=== PATIENT | female | born 1990 | race African-American/Black ===

== ENCOUNTER 2016-05-22 19:01 | Inpatient (IN) ==
[2016-05-22 19:29] LABS: Apearance,Urine Slightly Hazy (Clear); Bacteria,Urine Occasional /HPF (Few); Bilirubin,Urine Negative (Negative); Blood, Urine Negative (Negative); Glucose,Urine (UA) Negative (Negative); Ketones,Urine 80 mg/dL (Negative); Mucus,Urine Occasional /LPF (Occasional); Nitrite,Urine Negative (Negative); Protein,Urine Negative; RBC,Urine <1 /HPF (0-4); Squamous Epithelial Cell,Urine Occasional /HPF (0-10); Urine Color Yellow (Yellow); Urine Specific Gravity 1.014 (1.001-1.035); Urine Urobilinogen < 2.0 EU/DL (0.2-1.0); WBC,Urine 3 /HPF (0-6)
[2016-05-22] MEDS ORDERED: LACTATED RINGERS 1,000 ML IV ONE ×2 (20:18→22:05)
[2016-05-22] MEDS ORDERED: ACETAMINOPHEN 325 MG TABLET PO ONE (20:18)
[2016-05-22] MEDS ORDERED: ONDANSETRON 4 MG/2 ML VIAL ONE (20:36)
[2016-05-22] MEDS ORDERED: ONDANSETRON 4 MG/2 ML VIAL IV ONE (20:47)
[2016-05-22] MEDS ORDERED: PROMETHAZINE 25 MG/1 ML VIAL ONE (21:49)
[2016-05-22] MEDS ORDERED: MEPERIDINE 50 MG/1 ML VIAL ONE (21:49)
[2016-05-22] MEDS ORDERED: MEPERIDINE 50 MG/1 ML VIAL IM ONE (22:05)
[2016-05-22] MEDS ORDERED: PROMETHAZINE 25 MG/1 ML VIAL IM ONE (22:05)
[2016-05-22] MEDS ORDERED: PROMETHAZINE 25 MG/1 ML VIAL IM PRN (22:58)
[2016-05-22] MEDS ORDERED: INFLUENZA VIRUS VACCINE 0.5 ML SYRINGE IM ONE (23:25)
[2016-05-22] MEDS ORDERED: LEVOFLOXACIN INJ 500 MG in PREMIX 1 EACH IV SCH (23:30)
[2016-05-22] MEDS: LACTATED RINGERS 1,000 ML IV SCH (23:39)
[2016-05-22] MEDS ORDERED: MEPERIDINE 50 MG/1 ML VIAL IM PRN (23:41)
[2016-05-22 23:45] LABS: Basophils % 0.2 % (0.0-0.8); Eosinophils # 0.1 10*3/uL (0.0-0.87); Eosinophils % 1.5 % (0.00-10.9); Hematocrit 29.1 VOL% (35.7-47.0); Hemoglobin 9.3 GM/DL (12.0-16.0); Immature Granulocytes % 0.3 %; Immature Granulocytes Absolute 0.02 #; Lymphocytes % 16.6 % (21.3-54.2); Mean Corpuscular Hemoglobin 23 PG (27-34); Mean Corpuscular Volume 71.5 FL (87-102); Monocytes # 0.5 10*3/uL (0.11-0.8); Monocytes % 8.8 % (1.7-12.7); Neutrophils # 4.3 10*3/uL (1.4-7.4); Neutrophils % 72.6 % (38.7-73.9); Platelet Count 317 10*3/uL (130-400); Red Blood Count 4.07 10*6/uL (3.8-5.5); Red Cell Distribution Width 15.2 % (9.3-17.3); White Blood Count 5.9 10*3/uL (4.5-13.71)
[2016-05-23 00:15] LABS: Alanine Aminotransferase 9 U/L (13-56); Albumin 2.5 G/DL (3.4-5.0); Alkaline Phosphatase 77 U/L (45-117); Aspartate Amino Transferase 9 U/L (0-37); Bilirubin,Total < 0.39 MG/DL (0.2-1.0); Blood Urea Nitrogen 3 MG/DL (7-18); Calcium 8.5 MG/DL (8.5-10.1); Glucose 76 MG/DL (74-106); Osmolality,Calculated 276.3 MOS/KG (273-304); Potassium 3.6 MMOL/L (3.5-5.1); Sodium 141 MMOL/L (136-145)
[2016-05-23] MEDS: LEVOFLOXACIN INJ 500 MG in PREMIX 1 EACH IV SCH (01:00)
[2016-05-23] MEDS ORDERED: PROMETHAZINE 25 MG/1 ML VIAL IM PRN (02:01)
[2016-05-23] MEDS: MEPERIDINE 50 MG/1 ML VIAL IV PRN ×5 (02:06→21:05)
[2016-05-23] MEDS: LACTATED RINGERS 1,000 ML IV SCH ×3 (05:00→20:33)
--- NOTE | 2016-05-23 06:38 | Ultrasound Report ---
History is right flank pain Right kidney is 12.0 CM in length Left kidney is 9.9 CM in length There is moderate dilatation of the right renal collecting system and proximal ureter No hydronephrosis seen on the left Cortical echogenicity is normal bilaterally there is arterial flow to both kidneys Impression: Moderate hydronephrosis on the right PROCEDURE INTERPRETED AT [facility] DEPARTMENT OF RADIOLOGY Final Report Signed by: Dr. Kiara Cannon
[2016-05-23] MEDS ORDERED: ONDANSETRON 4 MG/2 ML VIAL IV PRN (16:40)
--- NOTE | 2016-05-23 18:06 | OB/GYN History & Physical ---
History of Present Illness Chief complaint: In for c/o flank pain and elevated temp History of present illness: Ms. Ku is a 26 year old female leaving 10/06/2016 estimated gestational size of 20 weeks and 3 days. The patient is a 5 para 2 living 2 Ab2. She presented to the labor department with complaints of right flank pain, stomach pain, chills and fever, and generalized malaise. The patient was admitted for evaluation of the above. The patient cervix is closed. She has been receiving her care to the [facility]. labs: Patient is B+, rubella immune, serologies nonreactive, hepatitis B negative, HIV negative. Home Medications Medication Instructions Recorded Confirmed Type Multivitamin () [ 1 tablet PO DAILY 05/22/16 05/22/16 History Vitamin] Propranolol Tab [Inderal Tab] 10 mg PO BID 05/22/16 05/22/16 History Allergies Allergy/AdvReac Type Severity Reaction Status Date / Time Penicillins AdvReac Mild ITCHING Verified 05/22/16 19:17 12 point system: reviewed and no additional remarkable complaints except as stated Medical,Surgical,& Family Hx - Medical History Psychological: History of: Anxiety Disorders Neurology: History of: Migraine, Seizures (last seizure in february) Genitourinary: History of: Recurring Urinary Tract Infections No history of: Kidney Stones Hematology: History of: Anemia Reproductive: History of: Abnormal Pap Smear (leep procedure in dec 2015), Ovarian Cysts - Surgical History Abdominal Surgeries: Surgical HX of: Cholecystectomy Reproductive Surgeries: Surgical HX of;: Dilation and Curettage (2008) - Family History Family History: Reports;: Family Cancer (mgm-stomach), Family Diabetes (mgm), Family Hypertension (mgm), Family Stroke (mother, mgm) Denies;: Family Anesthesia Reaction, Family Heart Disease, Family Hematology , Family Psychiatric Problems, Additional Family History - Social History Smoking Status: Never smoker Frequency of Alcohol Use: None Type of Drug Use: None Marital Status: Functional capacity: independent ambulation 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 - Constitutional Vitals: Vital Signs Temp Pulse Resp BP Pulse Ox 05/23/16 16:00 97.3 F L 85 20 98/60 98 05/23/16 11:50 97.9 F 91 H 20 105/62 100 05/23/16 08:00 97.8 F 84 18 120/58 05/23/16 04:00 98.8 F 95 H 16 124/59 05/22/16 23:46 98.5 F 83 18 138/78 99 05/22/16 21:20 100.3 F H 05/22/16 19:10 99.9 F H 134 H 20 109/64 General appearance: mild distress - Antepartum / Post Antpartum Exam Cervix -Dilatation: closed Abdomen obstetrics: Present: bowel sounds normal Vagina: Present: normal moisture Uterus exam: Present: enlarged - Respiratory Respiratory exam: Present: clear to auscultation bilaterally - Cardiovascular Cardiovascular exam: Present: regular rate and rhythm - GI/Abdominal GI/Abdominal exam: Present: normal bowel sounds, soft - Extremities Exam Extremities exam: Present: normal inspection - Back Exam Back exam: Present: CVA tenderness (R) - Neurological Exam Neurological exam: Present: alert, oriented X3 - Psychiatric Psychiatric exam: Present: normal affect, normal mood - Skin Skin exam: Present: normal color, warm Assessment and Plan (1) and not yet delivered in second trimester Status: Acute Assessment and plan: Admit IV fluids CBC UA Expected Management. Current Visit: Yes (2) Pelvic pain affecting in second trimester, antepartum Status: Acute Current Visit: Yes Results - Labs CBC & BMP: 05/22/16 23:20 05/22/16 23:20
[2016-05-24] MEDS: LEVOFLOXACIN INJ 500 MG in PREMIX 1 EACH IV SCH (01:29)
[2016-05-24] MEDS: MEPERIDINE 50 MG/1 ML VIAL IV PRN ×3 (01:33→10:12)
[2016-05-24] MEDS: LACTATED RINGERS 1,000 ML IV SCH (05:26)
[2016-05-24 08:46] VITALS: BP 90/53
--- NOTE | 2016-05-24 10:39 | Discharge Summary ---
Hospital Course - Hospital Course Hospital Course: Patient admitted with severe right-sided flank pain. Fetus was very active, denies any fever or chills, does describe occasional nausea and vomiting. Ultrasound of the kidney demonstrated mild to moderate hydronephrosis on the right side at approximately 20 weeks' gestation. Urinalysis demonstrated no evidence of any leukocytes, bacteria, crystals, only hazy-colored urine. Patient was administered IV fluids she did received IV antibiotics, and IV Demerol. Over the course of her hospitalization she did receive several doses of Demerol. Fetus is been very active, cardiac activity has been well documented. Have counseled this patient in terms of increasing her fluid, we' ll continue with IV antibiotics, follow my office within a week and the possibility of follow-up with a urologist for further evaluation. Discharge Plan - Discharge Data Condition at Discharge: Stable Discharge Diet: advance to your usual diet Activity: resume usual activities as tolerated Hygiene: may shower Weight Bearing at Discharge: full weight bearing Driving: no restrictions Contact your physician if you experience:: Difficulty voiding - Discharge Medications New Promethazine Inj [Phenergan Inj] 25 mg RECTAL Q6H PRN #20 supp PRN Reason: Nausea/Vomiting No Action Propranolol Tab [Inderal Tab] 10 mg PO BID Multivitamin () [ Vitamin] 1 tablet PO DAILY - Follow Up or Referral - Forms/Instructions Exam - Constitutional Vitals: Period Temp Pulse Resp BP Sys/Pop Pulse Ox Last 24 Hr 97.1 F-97.9 F 64-91 16-20 90-105/49-62 98-100 General appearance: no acute distress - Head Head exam: Present: normal inspection - Eye Eye exam: Present: EOMI Pupils: Present: GORDON - ENT ENT exam: Present: normal exam - Neck Neck exam: Present: normal inspection - Respiratory Respiratory exam: Present: clear to auscultation bilaterally - Cardiovascular Cardiovascular exam: Present: regular rate and rhythm - GI/Abdominal GI/Abdominal exam: Present: normal bowel sounds - Extremities Exam Extremities exam: Present: normal inspection - Back Exam Back exam: Present: CVA tenderness (R) (skeletal 10 she rates her discomfort at a 3) - Neurological Exam Neurological exam: Present: alert, oriented X3 - Psychiatric Psychiatric exam: Present: anxious - Skin Skin exam: Present: normal color DS: Provider Date of admission: 05/22/16 19:01 Primary care physician: . No PCP Attending physician on admission: Jenniffer Camacho MD Discharging clinician: Jenniffer Camacho MD
== END 2016-05-24 12:50 | disposition home or self-care (01) | DRG 781 ==
LOC: EDSTATUS 19:01 → N.LD 19:01 → N.LDOUT 19:01 → N.LD 19:03 → N.OB 05-23 11:50
PROVIDERS: ADMIT Obstetrics & Gynecology; ATTEND Obstetrics & Gynecology

== ENCOUNTER 2016-06-26 05:16 | Inpatient (IN) ==
[2016-06-26] MEDS: LACTATED RINGERS 1,000 ML IV SCH ×3 (06:10→23:44)
[2016-06-26] MEDS: MEPERIDINE 50 MG/1 ML VIAL IV PRN ×3 (06:12→20:50)
[2016-06-26] MEDS: PROMETHAZINE 25 MG/1 ML VIAL IM PRN ×2 (06:12→12:45)
[2016-06-26] MEDS ORDERED: GENTAMICIN INJ 100 MG in PREMIX 1 EACH IV SCH (08:00)
[2016-06-26 08:20] LABS: Basophils % 0.2 % (0.0-0.8); Eosinophils % 0.1 % (0.00-10.9); Hematocrit 29.6 VOL% (35.7-47.0); Hemoglobin 9.3 GM/DL (12.0-16.0); Immature Granulocytes % 1.1 %; Immature Granulocytes Absolute 0.13 #; Lymphocytes # 1.6 10*3/uL (1.4-4.0); Lymphocytes % 13.4 % (21.3-54.2); Mean Corpuscular HGB Conc 31.4 GM/DL (32-36); Mean Corpuscular Hemoglobin 23 PG (27-34); Mean Corpuscular Volume 73.4 FL (87-102); Mean Platelet Volume 10.6 FL (9.6-12.0); Monocytes # 0.5 10*3/uL (0.11-0.8); Monocytes % 4.3 % (1.7-12.7); Neutrophils # 9.9 10*3/uL (1.4-7.4); Neutrophils % 80.9 % (38.7-73.9); Platelet Count 353 T/CUMM (130-400); Red Blood Count 4.03 MC/CUMM (3.8-5.5); Red Cell Distribution Width 15.6 % (9.3-17.3); White Blood Count 12.2 T/CUMM (4-12)
[2016-06-26] MEDS ORDERED: GENTAMICIN INJ 120 MG in PREMIX 1 EACH IV ONE (08:30)
[2016-06-26] MEDS: BUTORPHANOL 2 MG/ML VIAL IV PRN ×2 (08:49→12:44)
--- NOTE | 2016-06-26 08:55 | Ultrasound Report ---
Exam: US renal Bilateral Date: 06/26/2016 7:57 AM Indication: Flank pain Comparison: 05/22/[address] 04/07/2012 Findings: Right kidney. 11.7 x 5.5 x 5.6 cm. No hydronephrosis or perinephric fluid collections with mild increased echogenicity. Normal vascularity present. Mild fullness of the renal pelvis present. Left kidney. 9.9 x 5 x 4.8 cm. No hydronephrosis or perinephric fluid collections with mild increased echogenicity normal vascularity present Impression: 1. No evidence of obstructive uropathy clearly demonstrated with suggestion of possible mild medical renal disease slight increased echogenicity. If additional imaging is warranted CT may be beneficial Ultrasound images were stored and captured PROCEDURE INTERPRETED AT [facility] DEPARTMENT OF RADIOLOGY Final Report Signed by: Dr. Mike Galvez
[2016-06-26] MEDS ORDERED: INFLUENZA VIRUS VACCINE 0.5 ML SYRINGE IM ONE (16:56)
[2016-06-26] MEDS: GENTAMICIN INJ 100 MG in PREMIX 1 EACH IV SCH (19:00)
[2016-06-26] MEDS: ONDANSETRON 4 MG/2 ML VIAL IV PRN (20:50)
[2016-06-27] MEDS: GENTAMICIN INJ 100 MG in PREMIX 1 EACH IV SCH ×3 (03:09→18:51)
[2016-06-27] MEDS: MEPERIDINE 50 MG/1 ML VIAL IV PRN ×4 (03:45→19:45)
[2016-06-27] MEDS: ONDANSETRON 4 MG/2 ML VIAL IV PRN ×2 (03:51→19:45)
[2016-06-27] MEDS: ACETAMINOPHEN 325 MG TABLET PO PRN ×2 (09:23→15:34)
[2016-06-27] MEDS: LACTATED RINGERS 1,000 ML IV SCH ×2 (09:32→18:51)
--- NOTE | 2016-06-27 14:54 | OB/GYN Progress Note ---
Assessment and Plan (1) Pelvic pain affecting in second trimester, antepartum Status: Acute Assessment and plan: Admit pain management Current Visit: No MOLD PARTER - PN: Subj Interval history: Stable. States she is feeling some better. Exam MOLD PARTER - Constitutional Vitals: Vital Signs Temp Pulse Resp BP Pulse Ox 06/27/16 14:20 100/67 06/27/16 12:00 18 06/27/16 07:29 98 F 72 16 89/41 96 06/27/16 05:31 18 06/27/16 03:45 99.6 F 82 18 105/57 99 06/26/16 23:05 98.5 F 75 18 90/56 99 06/26/16 20:19 84 20 06/26/16 19:30 99.3 F 84 20 100/58 99 06/26/16 16:25 98 F 75 20 105/61 99 General appearance: mild distress - Head Head exam: Present: normal inspection - Respiratory Respiratory exam: Present: clear to auscultation bilaterally - Cardiovascular Cardiovascular exam: Present: regular rate and rhythm - GI/Abdominal GI/Abdominal exam: Present: normal bowel sounds, soft - Extremities Exam Extremities exam: Present: normal inspection - Back Exam Back exam: Present: CVA tenderness (L) - Neurological Exam Neurological exam: Present: alert, oriented X3 - Psychiatric Psychiatric exam: Present: normal affect, normal mood - Skin Skin exam: Present: normal color, warm Results - Labs CBC & BMP: 06/26/16 08:07
[2016-06-27] MEDS: FERROUS SULFATE 325 MG TABLET PO SCH ×2 (15:34→19:45)
[2016-06-28] MEDS: MEPERIDINE 50 MG/1 ML VIAL IV PRN ×5 (01:10→22:23)
[2016-06-28] MEDS: LACTATED RINGERS 1,000 ML IV SCH ×3 (02:21→18:12)
[2016-06-28] MEDS: GENTAMICIN INJ 100 MG in PREMIX 1 EACH IV SCH ×2 (03:00→11:09)
[2016-06-28] MEDS: FERROUS SULFATE 325 MG TABLET PO SCH ×2 (08:46→20:06)
--- NOTE | 2016-06-28 11:36 | Progress Note ---
Family Medicine PN Sub Interval history: Day #2 Treatment for a right pyelonephritis, urine was sensitive to staph aureus with methicillin-resistant. Sensitivities to gentamicin is less than 4 but trimethoprim sulfa was less than 0.5. This patient will continue with her gentamicin a consult will be added to increase to dose of gentamicin and also we will add the Bactrim DS 2 tablets twice a day. Risks were discussed with this patient heart tones still present she is doing well. Exam (Progress Note) - Constitutional Vitals: Period Temp Pulse Resp BP Sys/Pop Pulse Ox Last 24 Hr 97.8 F-98.8 F 78-99 18-20 95-109/53-67 96-99 Results - Labs CBC & BMP: 06/26/16 08:07
[2016-06-28] MEDS ORDERED: SULFAMETHOX/TRIMETHOPRIM 800-160 MG TABLET PO SCH (12:00)
[2016-06-28] MEDS ORDERED: SULFAMETHOX/TRIMETHOPRIM 400-80 MG TABLET PO SCH (12:00)
[2016-06-28] MEDS: FOLIC ACID 1 MG TABLET PO SCH (12:40)
[2016-06-28] MEDS: ONDANSETRON 4 MG/2 ML VIAL IV PRN ×2 (15:10→20:00)
[2016-06-28] MEDS: PROMETHAZINE 25 MG/1 ML VIAL IM PRN (16:02)
[2016-06-28] MEDS: VANCOMYCIN INJ 1,250 MG in SODIUM CHLORIDE 0.9% 250 ML IV SCH (18:12)
[2016-06-28 19:02] LABS: Calcium 8.5 MG/DL (8.5-10.1); Osmolality,Calculated 277.1 MOS/KG (273-304); Potassium 4.2 MMOL/L (3.5-5.1)
[2016-06-29] MEDS: MEPERIDINE 50 MG/1 ML VIAL IV PRN ×2 (02:59→07:51)
[2016-06-29] MEDS: ONDANSETRON 4 MG/2 ML VIAL IV PRN (02:59)
[2016-06-29] MEDS: LACTATED RINGERS 1,000 ML IV SCH (03:05)
[2016-06-29] MEDS: VANCOMYCIN INJ 1,250 MG in SODIUM CHLORIDE 0.9% 250 ML IV SCH ×2 (05:55→17:33)
[2016-06-29] MEDS: FERROUS SULFATE 325 MG TABLET PO SCH ×2 (09:57→21:50)
[2016-06-29] MEDS: FOLIC ACID 1 MG TABLET PO SCH (09:58)
--- NOTE | 2016-06-29 11:10 | Progress Note ---
Family Medicine PN Sub Interval history: Patient still complained of mild discomfort in the lower back. She is remained afebrile, no nausea vomiting and no discomfort with urination. We'll decrease the IV fluids converted to 19 , The vancomycin will be continued today and as well as on Friday the fifth. We will discontinue the amount of IV narcotics and continue with by mouth pain meds. This patient will possibly be discharged in the a.m. in follow-up our office approximately one week. Exam (Progress Note) - Constitutional Vitals: Period Temp Pulse Resp BP Sys/Pop Pulse Ox Last 24 Hr 97.3 F-99.3 F 76-91 18-22 84-112/50-64 96-98 Results - Labs CBC & BMP: 06/26/16 08:07 06/28/16 17:24 Specialty Discharge - Follow Up or Referrals Follow up with: Jenniffer Camacho MD [Physician] -
[2016-06-29] MEDS: PROMETHAZINE 25 MG TABLET PO PRN (13:05)
[2016-06-29] MEDS: PROMETHAZINE 25 MG/1 ML VIAL IM PRN (21:40)
[2016-06-30 03:15] LABS: Basophils % 0.3 % (0.0-0.8); Eosinophils # 0.5 10*3/uL (0.0-0.87); Hemoglobin 8.8 GM/DL (12.0-16.0); Immature Granulocytes % 1.3 %; Lymphocytes # 1.8 10*3/uL (1.4-4.0); Lymphocytes % 23.6 % (21.3-54.2); Mean Corpuscular HGB Conc 32.6 GM/DL (32-36); Mean Corpuscular Hemoglobin 23 PG (27-34); Mean Corpuscular Volume 70.7 FL (87-102); Mean Platelet Volume 10.8 FL (9.6-12.0); Monocytes # 0.6 10*3/uL (0.11-0.8); Monocytes % 7.6 % (1.7-12.7); Neutrophils # 4.7 10*3/uL (1.4-7.4); Neutrophils % 61.2 % (38.7-73.9); Platelet Count 367 T/CUMM (130-400); Red Blood Count 3.82 MC/CUMM (3.8-5.5); Red Cell Distribution Width 15.3 % (9.3-17.3); White Blood Count 7.7 T/CUMM (4-12)
[2016-06-30] MEDS: VANCOMYCIN INJ 1,250 MG in SODIUM CHLORIDE 0.9% 250 ML IV SCH ×3 (06:05→21:31)
[2016-06-30] MEDS: FOLIC ACID 1 MG TABLET PO SCH (08:15)
[2016-06-30] MEDS: FERROUS SULFATE 325 MG TABLET PO SCH ×2 (08:15→21:31)
[2016-06-30] MEDS: PROMETHAZINE 25 MG TABLET PO PRN (11:30)
[2016-06-30] MEDS ORDERED: ACETAMINOPHEN/CODEINE 300-30 MG TABLET PO PRN (12:00)
[2016-06-30] MEDS ORDERED: PROMETHAZINE 12.5 MG SUPP RECTAL ONE (12:18)
[2016-06-30] MEDS: PROMETHAZINE 25 MG SUPP RECTAL PRN ×2 (12:30→18:35)
--- NOTE | 2016-06-30 14:20 | Progress Note ---
Family Medicine PN Sub Interval history: Present being treated for pyelonephritis. This patient CT scan in 2011 and also in April as well. No evidence of any obstructive U uropathy or nephropathy. Her white count is been within normal limits. This patient is been afebrile. She only complains of right lower back discomfort. She's presently tolerating heating pad and also by mouth pain medicine. Her antibiotics and then switched to vancomycin which is sensitive to the MRSA bacteria that was isolated in her urine. We'll continue with present therapy possible discharge in a.m. Exam (Progress Note) - Constitutional Vitals: Period Temp Pulse Resp BP Sys/Pop Pulse Ox Last 24 Hr 98.0 F-98.8 F 59-96 18-18 95-106/50-60 97-98 Results - Labs CBC & BMP: 06/30/16 03:01 06/28/16 17:24 Specialty Discharge - Follow Up or Referrals Follow up with: Jenniffer Camacho MD [Physician] -
[2016-07-01] MEDS: VANCOMYCIN INJ 1,250 MG in SODIUM CHLORIDE 0.9% 250 ML IV SCH (06:11)
[2016-07-01 07:17] VITALS: BP 96/50
--- NOTE | 2016-07-01 09:06 | Discharge Summary ---
Hospital Course - Hospital Course Hospital Course: Fourth hospital day Patient is very sluggish with her movements, parous to be depressed, no nausea, no vomiting, pain is minimal but still present. Urine is clear, no evidence of passes of any stones, denies any fever or chills or shortness of breath. Physical exam was essentially unremarkable, positive heart tones, positive document movements. Questionable CVA tenderness. Assessment plan UTI, no documented kidney stones, no known history of any renal pathology. We'll DC today continue with by mouth antibiotics and analgesic follow-up our office in 2 weeks. If symptoms persist we'll have this patient evaluated by maternal medicine physician at [facility]. Specialty Discharge - Follow Up or Referrals Follow up with: Jenniffer Camacho MD [Physician] - Discharge Plan - Discharge Data Condition at Discharge: Stable Discharge Diet: advance to your usual diet Activity: increase activity as tolerated Hygiene: may shower Driving: no restrictions Contact your physician if you experience:: fever over 101, Nausea/Vomiting, Bleeding - Discharge Medications New Ferrous Sulfate Tab [Feosol Original Tab] 325 mg PO BID #60 tablet Sulfameth/Trimeth 800-160 Tab [Bactrim DS Tab] 2 tablet PO BID #14 tablet HYDROcodone/ACETAMIN 5-325 [[place] 5-325] 2 tablet PO Q4H PRN #30 tablet PRN Reason: Pain Moderate (4-7) Promethazine Inj [Phenergan Inj] 25 mg IM Q6H PRN #10 vial PRN Reason: Nausea/Vomiting No Action Propranolol Tab [Inderal Tab] 10 mg PO BID Multivitamin () [ Vitamin] 1 tablet PO DAILY Promethazine Inj [Phenergan Inj] 25 mg RECTAL Q6H PRN #20 supp PRN Reason: Nausea/Vomiting - Follow Up or Referral Follow Up: Jenniffer Camacho MD [Physician] - - Forms/Instructions Instructions: (DC), Urinary Tract Infection in Women (DC), Acute Pyelonephritis (DC), Flank Pain, Rn Travel (GEN) Exam - Constitutional Vitals: Period Temp Pulse Resp BP Sys/Pop Pulse Ox Last 24 Hr 97.8 F-98.7 F 83-94 18-20 95-103/50-58 95-98 DS: Provider Date of admission: 06/26/16 05:16 Primary care physician: . No PCP Attending physician on admission: Jenniffer Camacho MD Consults: 06/28/16 11:39 Consult to Pharmacy [CONS] Routine Reason for Pharmacy Consult: Dose/Manage Gentamicin Discharging clinician: Jenniffer Camacho MD
[2016-07-01] MEDS: FOLIC ACID 1 MG TABLET PO SCH (09:09)
[2016-07-01] MEDS: FERROUS SULFATE 325 MG TABLET PO SCH (09:09)
[2016-07-01] MEDS ORDERED: INFLUENZA VIRUS VACCINE 0.5 ML SYRINGE IM ONE (10:34)
== END 2016-07-01 11:25 | disposition home or self-care (01) | DRG 781 ==
LOC: EDSTATUS 05:16 → N.OB 05:16 → N.LDOUT 05:16 → N.LD 05:16 → N.OB 16:08
PROVIDERS: ADMIT Obstetrics & Gynecology; ATTEND Obstetrics & Gynecology

== ENCOUNTER 2016-08-26 05:26 | Inpatient (IN) ==
[2016-08-26] MEDS ORDERED: LACTATED RINGERS 1,000 ML IV ONE (06:20)
[2016-08-26] MEDS ORDERED: TERBUTALINE 1 MG/1 ML VIAL SUBCUT ONE ×2 (06:21→11:55)
[2016-08-26] MEDS ORDERED: ONDANSETRON 4 MG/2 ML VIAL IV ONE (06:24)
[2016-08-26] MEDS ORDERED: MEPERIDINE 50 MG/1 ML VIAL IV ONE (06:24)
[2016-08-26 06:27] LABS: Amorphous Crystals,Urine Occasional /HPF (Few); Apearance,Urine Slightly Hazy (Clear); Bacteria,Urine Occasional /HPF (Few); Bilirubin,Urine Negative (Negative); Blood, Urine Negative (Negative); Glucose,Urine (UA) Negative (Negative); Ketones,Urine Negative (Negative); Mucus,Urine Occasional /LPF (Occasional); Nitrite,Urine Negative (Negative); Protein,Urine Negative; RBC,Urine <1 /HPF (0-4); Squamous Epithelial Cell,Urine Occasional /HPF (0-10); Urine Color Yellow (Yellow); Urine Urobilinogen < 2.0 EU/DL (0.2-1.0); WBC,Urine 8 /HPF (0-6)
[2016-08-26] MEDS: NIFEdipine 10 MG CAPSULE PO SCH ×3 (07:35→21:12)
[2016-08-26] MEDS ORDERED: NIFEdipine 10 MG CAPSULE ONE (07:38)
[2016-08-26] MEDS: LACTATED RINGERS 1,000 ML IV SCH ×2 (07:45→12:59)
[2016-08-26] MEDS ORDERED: NITROFURANTOIN MACRO/MONO 100 MG CAPSULE PO SCH (12:30)
[2016-08-26] MEDS ORDERED: MEPERIDINE 50 MG/1 ML VIAL IV PRN (13:01)
[2016-08-26] MEDS: ONDANSETRON 4 MG/2 ML VIAL IV PRN ×2 (13:16→21:19)
[2016-08-26] MEDS ORDERED: ACETAMINOPHEN/CODEINE 300-30 MG TABLET PO PRN (18:35)
[2016-08-26] MEDS: ACETAMINOPHEN/CODEINE 300-30 MG TABLET PO PRN (21:12)
[2016-08-26] MEDS: SULFAMETHOX/TRIMETHOPRIM 800-160 MG TABLET PO SCH (22:30)
[2016-08-27] MEDS: ACETAMINOPHEN/CODEINE 300-30 MG TABLET PO PRN ×3 (00:50→18:53)
[2016-08-27] MEDS ORDERED: OXYTOCIN/LR 20 UNIT/1,000 ML BAG IV SCH (02:30)
[2016-08-27] MEDS: NIFEdipine 10 MG CAPSULE PO SCH ×4 (03:00→20:19)
[2016-08-27] MEDS: SULFAMETHOX/TRIMETHOPRIM 800-160 MG TABLET PO SCH ×2 (09:40→20:19)
[2016-08-27] MEDS: ONDANSETRON 4 MG/2 ML VIAL IV PRN (12:15)
[2016-08-27] MEDS: LACTATED RINGERS 1,000 ML IV SCH (20:10)
[2016-08-28] MEDS: ACETAMINOPHEN/CODEINE 300-30 MG TABLET PO PRN ×2 (00:20→05:30)
[2016-08-28] MEDS: ONDANSETRON 4 MG/2 ML VIAL IV PRN ×2 (01:30→07:28)
[2016-08-28] MEDS: NIFEdipine 10 MG CAPSULE PO SCH ×4 (01:30→21:20)
[2016-08-28] MEDS: DEXTROSE 5% LACTATED RINGERS 1,000 ML IV SCH ×2 (07:15→16:15)
[2016-08-28] MEDS: MEPERIDINE 50 MG/1 ML VIAL IV PRN ×3 (07:15→15:33)
[2016-08-28] MEDS: SULFAMETHOX/TRIMETHOPRIM 800-160 MG TABLET PO SCH ×2 (09:00→21:30)
[2016-08-28] MEDS ORDERED: MAGNESIUM SULF RIDER 100 ML IV ONE (10:17)
--- NOTE | 2016-08-28 10:17 | OB/GYN Progress Note ---
Assessment and Plan (1) Pelvic pain affecting in third trimester, antepartum Status: Acute Assessment and plan: active management Current Visit: Yes [employer]QU[employer] - PN: Subj Interval history: C/o feeling "miserable." Still kaiden occasional but minimally. Exam [employer]QU[employer] - Constitutional Vitals: Vital Signs Temp Pulse Resp BP Pulse Ox 08/28/16 07:22 97.6 F 78 18 95/48 98 08/28/16 04:00 97.6 F 81 18 124/54 99 08/28/16 02:00 20 08/28/16 00:00 98.1 F 82 20 115/60 99 08/27/16 20:00 98.2 F 86 18 97/51 98 08/27/16 15:58 98.1 F 83 20 110/55 98 08/27/16 11:18 97.8 F 83 18 96/50 98 General appearance: mild distress - Antepartum / Post Antepartum Exam Cervix -Dilatation: cervix closed. Breast: bilateral: normal Abdomen obstetrics: Present: bowel sounds normal Uterus exam: Present: enlarged - Respiratory Respiratory exam: Present: clear to auscultation bilaterally - Cardiovascular Cardiovascular exam: Present: regular rate and rhythm - GI/Abdominal GI/Abdominal exam: Present: normal bowel sounds, soft, other (Pain) - Extremities Exam Extremities exam: Present: normal inspection - Neurological Exam Neurological exam: Present: alert, oriented X3 - Psychiatric Psychiatric exam: Present: normal affect, normal mood - Skin Skin exam: Present: normal color, warm
[2016-08-28] MEDS ORDERED: MAGNESIUM SULF DRIP 40 GM/1,000 ML ML IV SCH (10:30)
--- NOTE | 2016-08-28 11:12 | Progress Note ---
Family Medicine PN Sub Interval history: 26-year-old multi parous female, approximately 34 weeks gestation, who was admitted on 27 August after being observed for less than 24 hours with persistent lower abdominal pain and discomfort. Monitor did not demonstrate any significant uterine contractions. She did have minimal contractions but it appeared to be not significant to the amount of pain she was having. She was observed with IV fluids and analgesic and a straight cath urinalysis. Her symptoms did not improve and she was placed on a monitor continuously was demonstrated a continuous pattern of 2-4 minutes apart of mild to moderate uterine contractions. She will be admitted IV magnesium sulfate will be initiated and continue to observe. heart tones have remained well within normal limits. Exam (Progress Note) - Constitutional Vitals: Period Temp Pulse Resp BP Sys/Pop Pulse Ox Last 24 Hr 97.6 F-98.2 F 78-86 18-20 95-124/48-60 98-99
[2016-08-28 12:15] LABS: Apearance,Urine CLEAR (Clear); Bacteria,Urine Occasional /HPF (Few); Bilirubin,Urine Negative (Negative); Blood, Urine Negative (Negative); Glucose,Urine (UA) Negative (Negative); Ketones,Urine Negative (Negative); Mucus,Urine Occasional /LPF (Occasional); Nitrite,Urine Negative (Negative); Protein,Urine Negative; RBC,Urine 1 /HPF (0-4); Squamous Epithelial Cell,Urine Occasional /HPF (0-10); Urine Color Yellow (Yellow); Urine Specific Gravity 1.009 (1.001-1.035); Urine Urobilinogen < 2.0 EU/DL (0.2-1.0); WBC,Urine 1 /HPF (0-6)
[2016-08-28] MEDS ORDERED: MEPERIDINE 25 MG/1 ML VIAL IV PRN (17:12)
[2016-08-28] MEDS ORDERED: PROMETHAZINE 25 MG/1 ML VIAL IM PRN (17:13)
[2016-08-29] MEDS: DEXTROSE 5% LACTATED RINGERS 1,000 ML IV SCH (03:50)
--- NOTE | 2016-08-29 09:26 | Progress Note ---
Family Medicine PN Sub Interval history: labor Patient has been present for the last 3 days with persistent intermittent questionable unrelenting pelvic pain. She has been on magnesium IV for the last 24 hours contractionscompletely out. Her cervix has not changed from admission. She is not febrile, she is not leaking fluid, the fetus is very active, there is no vaginal bleeding, an obstetrical ultrasound and an abdominal ultrasound has been completely normal. This patient has requested IV pain medicine, and is felt that the p.o. pain medicine is not relieved her discomfort. Have discussed with this patient no medical, no physical findings has identified her discomfort. Do not know whether or not there is a an emotional element to this in regards to this patient with no further desire to be . Will discontinue all medication today and discharge her with p.o. cardia and change it to every 4 hours with limited amount of p.o. Tylenol 3 for discomfort. At thoroughly discussed with this patient that she has not documented any cervical change, the fetus is very active with good heart tones and do not feel that it is necessary to induce labor at 35 weeks secondary to chronic discomfort. We will have this patient follow-up with us in approximately 1 week for further evaluation. Exam (Progress Note) - Constitutional Vitals: Period Temp Pulse Resp BP Sys/Pop Pulse Ox Last 24 Hr 97.1 F-98.1 F 68-81 18-18 105-119/56-65
--- NOTE | 2016-08-29 09:30 | Discharge Summary ---
Hospital Course - Hospital Course Hospital Course: This patient was admitted with pelvic pain and discomfort at approximately 34+ weeks gestation. She was admitted earlier in her and in May of this year with a urinary tract infection was grew out MRSA. She was treated appropriately and discharged home with analgesic antibiotics and also limited activity. She returns at this time with similar symptoms. The urinalysis demonstrated E. coli but minimal amount of WBCs. She was placed on Bactrim DS she received continuous of Procardia every 6 hours and received analgesic. She did not have a relief of her symptoms over 24 hours so she was admitted. Her discomfort continued and she was placed on monitor which demonstrated minimal uterine contractions on a regular basis. She was observed for 24 hours on IV magnesium sulfate her pain has relieved to the point where it is tolerable. She has obtained a ultrasound of the upper abdomen the kidneys and the with demonstrated no abnormal findings. In light of all of this observation this patient will be discharged with Procardia every 4 hours, Tylenol 3's, and observation in follow-up in 1 week. This patient has not documented any cervical change and have encouraged her to continue with the present therapy. Discharge Plan - Discharge Data Disposition: Disch To Home/Self Care Condition at Discharge: Stable Discharge Diet: advance to your usual diet Activity: resume usual activities as tolerated Hygiene: no restrictions, may shower Weight Bearing at Discharge: full weight bearing Contact your physician if you experience:: fever over 101, Nausea/Vomiting, Shortness of breath, Bleeding - Discharge Medications New Acetamin/Codeine 300-30 Tab [Tylenol/Codeine #3] 2 tablet PO Q4H PRN #30 tablet PRN Reason: Pain Mild (1-3) Sulfameth/Trimeth 800-160 Tab [Bactrim DS Tab] 1 tablet PO BID tablet NIFEdipine CAP [Procardia] 10 mg PO Q4H capsule No Action Clindamycin Cap [Cleocin Cap] 300 mg PO Q8HR #30 capsule Propranolol Tab [Inderal Tab] 10 mg PO DAILY Multivitamin () [ Vitamin] 1 tablet PO DAILY NIFEdipine CAP [Procardia] 1 tablet PO DIRECTED - Follow Up or Referral - Forms/Instructions Exam - Constitutional Vitals: Period Temp Pulse Resp BP Sys/Pop Pulse Ox Last 24 Hr 97.1 F-98.1 F 68-81 18-18 105-119/56-65 Discharge Results Procedures and tests throughout hospitalization: Pending Orders 05/01/17 Urine Culture Routine 08/29/16 08:41 US OB >= 14 weeks fetus Stat 08/29/16 11:00 Magnesium Q6H Labs on day of discharge: Labs from last 24 hours 08/29/16 08/28/16 08/28/16 05:12 23:00 16:55 Magnesium 6.3 H 5.9 H 5.0 H Urine Color Urine Appearance Urine pH Ur Specific [place] Urine Protein Urine Glucose (UA) Urine Ketones Urine Blood Urine Nitrate Urine Bilirubin Urine Urobilinogen Urine Leukocytes Urine RBC Urine WBC Ur Squamous Epith Cells Urine Bacteria Urine Mucus Ur Culture Indicated? 08/28/16 11:52 Magnesium Urine Color Yellow Urine Appearance Clear Urine pH 7.0 Ur Specific [place] 1.009 Urine Protein Negative Urine Glucose (UA) Negative Urine Ketones Negative Urine Blood Negative Urine Nitrate Negative Urine Bilirubin Negative Urine Urobilinogen < 2.0 H Urine Leukocytes Negative Urine RBC 1 Urine WBC 1 Ur Squamous Epith Cells Occasional Urine Bacteria Occasional Urine Mucus Occasional Ur Culture Indicated? Not indicated Preliminary micro results at discharge 08/26/16 Unknown Urine Culture - Preliminary Urine,Catheterized Klebsiella pneumoniae Gram Positive Cocci DS: Provider Date of admission: 08/26/16 20:52 Primary care physician: . No PCP Attending physician on admission: Jenniffer Camacho MD Discharging clinician: Jenniffer Camacho MD
[2016-08-29 10:05] LABS: Basophils % 0.3 % (0.0-0.8); Eosinophils # 0.3 10*3/uL (0.0-0.87); Eosinophils % 3.5 % (0.00-10.9); Hematocrit 29.2 VOL% (35.7-47.0); Hemoglobin 9.4 GM/DL (12.0-16.0); Immature Granulocytes % 0.8 %; Immature Granulocytes Absolute 0.06 #; Lymphocytes # 1.6 10*3/uL (1.4-4.0); Lymphocytes % 19.9 % (21.3-54.2); Mean Corpuscular HGB Conc 32.2 GM/DL (32-36); Mean Corpuscular Hemoglobin 23 PG (27-34); Mean Platelet Volume 10.4 FL (9.6-12.0); Monocytes # 0.5 10*3/uL (0.11-0.8); Monocytes % 6.8 % (1.7-12.7); Neutrophils # 5.4 10*3/uL (1.4-7.4); Neutrophils % 68.7 % (38.7-73.9); Platelet Count 370 T/CUMM (130-400); Red Blood Count 4.11 MC/CUMM (3.8-5.5); Red Cell Distribution Width 15.9 % (9.3-17.3); White Blood Count 7.8 T/CUMM (4-12)
[2016-08-29] MEDS: SULFAMETHOX/TRIMETHOPRIM 800-160 MG TABLET PO SCH (10:25)
[2016-08-29] MEDS: NIFEdipine 10 MG CAPSULE PO SCH ×2 (10:25→14:20)
[2016-08-29 10:36] LABS: Alanine Aminotransferase 11 U/L (13-56); Albumin 2.4 G/DL (3.4-5.0); Alkaline Phosphatase 153 U/L (45-117); Aspartate Amino Transferase 14 U/L (0-37); Bilirubin,Total < 0.39 MG/DL (0.2-1.0); Blood Urea Nitrogen 2 MG/DL (7-18); Glucose 78 MG/DL (74-106); Osmolality,Calculated 269.7 MOS/KG (273-304); Potassium 4.3 MMOL/L (3.5-5.1); Sodium 138 MMOL/L (136-145); Total Protein 5.9 G/DL (6.4-8.3)
[2016-08-29 10:38] VITALS: BP 96/52
--- NOTE | 2016-08-29 10:47 | Ultrasound Report ---
Referring Physician: Jenniffer Camacho Exam: OB ultrasound greater than 14 weeks Date: August 29, 2016 Comparison: OB ultrasound March 25, 2016 Reason: Abdominal/pelvic pain, labor Technique: Transabdominal grayscale ultrasound images were obtained. Ultrasound images were captured and stored. Findings: There is a single intrauterine in a cephalic presentation. heart rate is 153 bpm. Amniotic fluid is within normal limits with an ANABELLA of 15.9 cm. The placenta is located anteriorly, and there is no evidence of placenta previa. The placenta has a grade 3 appearance. The cervix measures 3.2 cm in length. The internal os is largely obscured but not obviously open. Evaluation of the anatomy is limited by the gestational age and lie. The stomach, four-chamber heart view, and kidneys and bladder are unremarkable. There is suboptimal visualization of the intracranial structures, face, spine and cord insertion. A three-vessel cord is seen. BPD: 35 weeks 0 days HC: 34 weeks 5 days AC: 31 weeks 6 days FL: 31 weeks 4 days The composite estimated gestational age by ultrasound is 33 weeks 2 days with an SUJATA of October 15, 2016. Previously calculated SUJATA on March 25, 2016 was October 02, 2016. EFW is 1948 g or 4 lbs. 5 oz.. The HC/AC ratio is 1.11, which is upper normal. The growth percentile is 4% and is based on the LMP. The maternal ovaries are not visualized. Impression: 1. There is a single intrauterine in a cephalic presentation. heart rate is 133 bpm. Estimated gestational age by ultrasound is 33 weeks 2 days with an SUJATA of October 15, 2016. Previously calculated SUJATA by ultrasound was October 02, 2016. This represents a 13 day discrepancy. EFW is 4 lbs. 5 oz. 2. Evaluation of anatomy is limited in some regions as described above. PROCEDURE INTERPRETED AT [facility] DEPARTMENT OF RADIOLOGY Final Report Signed by: Dr. Lara Smith
--- NOTE | 2016-08-29 10:53 | Ultrasound Report ---
Referring Physician: Jenniffer Camacho Exam: US abdomen Date: August 29, 2016 Reason: Generalized abdominal pain Comparison: Renal ultrasound June 26, 2016 Technique: Grayscale and color flow images of the abdomen were obtained. Ultrasound images were captured and stored. Findings: The liver measures 16.6 cm in length. No suspicious hepatic lesion is identified. The patient has a history of cholecystectomy. The common bile duct is normal in size, measuring 0.3 cm in diameter. The visualized pancreas is unremarkable. The right kidney measures 12.7 x 6.3 x 5.8 cm, and the left kidney measures 10.0 x 5.6 x 5.3 cm. There is moderate right hydronephrosis and mild left hydronephrosis. The bladder could not be evaluated since a Foy catheter is in place and the patient is (third trimester). The spleen measures 8.9 x 3.8 x 3.6 cm. Splenic volume is 121 cc. The visualized IVC appears patent, and no ascites is seen. The abdominal aorta is normal in size, measuring up to 1.2 cm in diameter. Impression: 1. Moderate right hydronephrosis and mild left hydronephrosis. This may be related to , but a distal obstructing process cannot be excluded, especially on the right. Follow-up is recommended. 2. History of cholecystectomy. PROCEDURE INTERPRETED AT [facility] DEPARTMENT OF RADIOLOGY Final Report Signed by: Dr. Laar Smith
== END 2016-08-29 14:35 | disposition home or self-care (01) | DRG 778 ==
LOC: N.LDOUT 05:26 → N.LD 05:31 → N.OB 21:35 → N.LD 08-28 10:47
PROVIDERS: ADMIT Obstetrics & Gynecology; ATTEND Obstetrics & Gynecology

== ENCOUNTER 2016-10-01 16:28 | Inpatient (IN) ==
[2016-10-01] MEDS ORDERED: MEPERIDINE 50 MG/1 ML VIAL IM PRN (16:43)
[2016-10-01] MEDS ORDERED: BUTORPHANOL 1 MG/ML VIAL IV PRN (16:43)
[2016-10-01] MEDS ORDERED: DINOPROSTONE VAG GEL 10 MG SYRINGE VAG ONE (16:47)
[2016-10-01] MEDS ORDERED: hydrOXYzine HCL 25 MG/1 ML VIAL IM PRN (16:53)
[2016-10-01] MEDS ORDERED: FAMOTIDINE 20 MG/2 ML VIAL IV ONE (16:53)
[2016-10-01] MEDS ORDERED: fentaNYL 2 MCG/ROPIV 0.2% EPID 150 ML EPIDURAL SCH (16:53)
[2016-10-01] MEDS ORDERED: LACTATED RINGERS 1,000 ML IV ONE (16:53)
[2016-10-01] MEDS ORDERED: CITRIC ACID/SODIUM CITRATE 30 ML UDCUP PO ONE (16:53)
[2016-10-01] MEDS ORDERED: diphenhydrAMINE 50 MG/1 ML VIAL IV PRN ×2 (16:53)
[2016-10-01] MEDS ORDERED: PROMETHAZINE 25 MG/1 ML VIAL IM ONE (16:53)
[2016-10-01] MEDS ORDERED: ePHEDrine 50 MG/ML AMP IV PRN (16:53)
--- NOTE | 2016-10-01 17:05 | OB/GYN History & Physical ---
History of Present Illness Chief complaint: In for elective induction of labor due to term History of present illness: Ms. Ku is a 26 year old female 5 para 2 AB 2 who presents for elective induction of labor due to term . The risk and benefits been thoroughly discussed with this patient and significant other, plan of care has been discussed with Dr. Camacho and all parties are in agreement plan. The patient received her care through the [facility] and she received routine care. Her course was complicated by multiple admissions for urinary tract infections and pelvic pain. Otherwise the patient had an uneventful course of labor the patient has had 2 previous vaginal deliveries the largest infant weighed 6 pounds and 8 ounces and she reported no complications with either . The patient has a history of seizures her last seizure was November 2015. The patient also was positive for MRSA in her urine. She has a history of a high-grade Pap smear. labs: she is B positive, RPR is nonreactive, hepatitis B is negative, HIV is negative, rubella is immune, GBS culture is negative. Review of systems is negative with exception of above Home Medications Medication Instructions Recorded Confirmed Type Multivitamin () [ 1 tablet PO DAILY 05/22/16 08/26/16 History Vitamin] Clindamycin Cap [Cleocin Cap] 300 mg PO Q8HR #30 capsule 07/29/16 08/26/16 Rx Propranolol Tab [Inderal Tab] 10 mg PO DAILY 07/29/16 08/26/16 History NIFEdipine CAP [Procardia] 1 tablet PO DIRECTED 08/26/16 08/26/16 History Acetamin/Codeine 300-30 Tab 2 tablet PO Q4H PRN #30 tablet 08/29/16 Rx [Tylenol/Codeine #3] NIFEdipine CAP [Procardia] 10 mg PO Q4H capsule 08/29/16 Rx Sulfameth/Trimeth 800-160 Tab 1 tablet PO BID tablet 08/29/16 Rx [Bactrim DS Tab] Allergies Allergy/AdvReac Type Severity Reaction Status Date / Time levofloxacin [From Levaquin] Allergy Intermediate HIVES Verified 08/26/16 05:51 Penicillins AdvReac Mild ITCHING Verified 08/26/16 05:51 12 point system: reviewed and no additional remarkable complaints except as stated Medical,Surgical,& Family Hx - Medical History Psychological: History of: Anxiety Disorders Neurology: History of: Migraine, Seizures (last seizure in february) Genitourinary: History of: Recurring Urinary Tract Infections, Problems No history of: Kidney Stones Hematology: History of: Anemia Reproductive: History of: Abnormal Pap Smear (leep procedure in dec 2015), Ovarian Cysts No history of: Ectopic , Complication - Surgical History Abdominal Surgeries: Surgical HX of: Cholecystectomy Reproductive Surgeries: Surgical HX of;: Dilation and Curettage (2008) - Family History Family History: Reports;: Family Cancer (mgm-stomach), Family Diabetes (mgm), Family Hypertension (mgm, dad, mom), Family Stroke (mother, mgm) Denies;: Family Anesthesia Reaction, Family Heart Disease, Family Psychiatric Problems - Social History Smoking Status: Never smoker Marital Status: Lives With:: Spouse Functional capacity: independent ambulation 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 - Constitutional General appearance: no acute distress - Antepartum / Post Antepartum Exam Cervix - Dilatation: 1 cm Effacement: 50% Station: -1 Rupture: Intact Presentation: Vertex Heart Rate: 130s-1 Breast: bilateral: normal Abdomen obstetrics: Present: bowel sounds normal Vagina: Present: normal moisture Uterus exam: Present: enlarged Anus/Rectum: Present: normal perianal skin - Respiratory Respiratory exam: Present: clear to auscultation bilaterally - Cardiovascular Cardiovascular exam: Present: regular rate and rhythm - GI/Abdominal GI/Abdominal exam: Present: normal bowel sounds, soft - Extremities Exam Extremities exam: Present: normal inspection - Neurological Exam Neurological exam: Present: alert, oriented X3 - Psychiatric Psychiatric exam: Present: normal affect, normal mood - Skin Skin exam: Present: normal color, warm Assessment and Plan (1) Term Status: Acute Assessment and plan: Admit IV fluids Prostin gel per protocol IV Pitocin per protocol Epidural anesthesia if desired Artificial rupture membranes when appropriate Internal monitors if indicated Anticipate Current Visit: Yes Quality Measures - VTE Contraindication to Pharmacological VTE Prophylaxis: Clinical assessment deems Pt at low risk, no prophalaxis needed
[2016-10-01 17:10] LABS: Basophils % 0.2 % (0.0-0.8); Eosinophils # 0.2 10*3/uL (0.0-0.87); Hematocrit 30.2 VOL% (35.7-47.0); Hemoglobin 9.7 GM/DL (12.0-16.0); Immature Granulocytes % 0.6 %; Immature Granulocytes Absolute 0.05 #; Lymphocytes # 2.1 10*3/uL (1.4-4.0); Lymphocytes % 24.3 % (21.3-54.2); Mean Corpuscular HGB Conc 32.1 GM/DL (32-36); Mean Corpuscular Hemoglobin 22 PG (27-34); Mean Corpuscular Volume 69.7 FL (87-102); Mean Platelet Volume 9.9 FL (9.6-12.0); Monocytes # 0.6 10*3/uL (0.11-0.8); Monocytes % 7.4 % (1.7-12.7); Neutrophils # 5.6 10*3/uL (1.4-7.4); Neutrophils % 65.5 % (38.7-73.9); Platelet Count 358 T/CUMM (130-400); Red Blood Count 4.33 MC/CUMM (3.8-5.5); Red Cell Distribution Width 15.9 % (9.3-17.3); White Blood Count 8.5 T/CUMM (4-12)
[2016-10-01] MEDS: LACTATED RINGERS 1,000 ML IV SCH ×2 (17:20→20:31)
[2016-10-01 17:30] LABS: Albumin 2.7 G/DL (3.4-5.0); Bilirubin,Total 0.4 MG/DL (0.2-1.0); Osmolality,Calculated 274.4 MOS/KG (273-304); Potassium 3.7 MMOL/L (3.5-5.1); Total Protein 6.7 G/DL (6.4-8.3); Uric Acid 3.7 MG/DL (2.6-6.0)
[2016-10-01] MEDS: ONDANSETRON 4 MG/2 ML VIAL IV PRN (21:38)
[2016-10-01] MEDS ORDERED: TERBUTALINE 1 MG/1 ML VIAL SUBCUT ONE (22:37)
[2016-10-01] MEDS ORDERED: TERBUTALINE 1 MG/1 ML VIAL SUBCUT PRN (23:14)
[2016-10-01 23:18] LABS: Apearance,Urine CLEAR (Clear); Bilirubin,Urine Negative (Negative); Blood, Urine Negative (Negative); Glucose,Urine (UA) Negative (Negative); Ketones,Urine 20 mg/dL (Negative); Mucus,Urine Few /LPF (Occasional); Nitrite,Urine Negative (Negative); Protein,Urine Negative; RBC,Urine <1 /HPF (0-4); Renal Epithelial Cells,Urine Occasional /HPF (<1); Squamous Epithelial Cell,Urine Occasional /HPF (0-10); Urine Color Yellow (Yellow); Urine Specific Gravity 1.017 (1.001-1.035); WBC,Urine 2 /HPF (0-6)
[2016-10-01] MEDS ORDERED: LACTATED RINGERS 1,000 ML IV SCH (23:30)
[2016-10-02] MEDS: LACTATED RINGERS 1,000 ML IV SCH (00:37)
[2016-10-02] MEDS ORDERED: MEPERIDINE 25 MG/1 ML VIAL IV PRN (01:33)
[2016-10-02] MEDS ORDERED: LIDOCAINE 1% 50 ML VIAL ONE (03:00)
[2016-10-02] MEDS ORDERED: miSOPROStol 200 MCG TABLET ONE (03:01)
[2016-10-02] MEDS ORDERED: METHYLERGONOVINE 0.2 MG/1 ML AMP ONE (03:01)
[2016-10-02 03:24] LABS: Cord Arterial Blood HCO3 21.3 MMOL/L
[2016-10-02 03:25] LABS: Cord Venous Blood HCO3 22.2 MMOL/L; Cord Venous Blood PCO2 38.1 MMHG; Cord Venous Blood PO2 38.5 MMHG
[2016-10-02] MEDS ORDERED: OXYTOCIN/LR 20 UNIT/1,000 ML BAG IV ONE (04:00)
[2016-10-02] MEDS: OXYTOCIN/LR 20 UNIT/1,000 ML BAG IV SCH ×2 (04:01→09:25)
[2016-10-02] MEDS ORDERED: ACETAMINOPHEN 500 MG TABLET PO PRN (04:29)
--- NOTE | 2016-10-02 07:20 | Anesthesia Post-Op ---
Anesthesia Post OP - Post Ansesthetic Evaluation Patient seen in post op: Yes Resp: within normal limits CV: within normal limits Mental: within normal limits Temp: within normal limits [id number]: within normal limits Nausea and Vomiting: within normal limits Pain: within normal limits
[2016-10-02] MEDS ORDERED: oxyCODONE/ACETAMINOPHEN 5-325 MG TABLET PO PRN (12:39)
[2016-10-02] MEDS ORDERED: oxyCODONE/ACETAMINOPHEN 5-325 MG TABLET ONE (12:41)
[2016-10-02] MEDS ORDERED: IBUPROFEN 800 MG TABLET ONE (12:42)
[2016-10-02] MEDS: IBUPROFEN 800 MG TABLET PO PRN ×2 (12:45→22:39)
[2016-10-02] MEDS: oxyCODONE/ACETAMINOPHEN 5-325 MG TABLET PO PRN ×2 (12:46→17:50)
--- NOTE | 2016-10-02 14:44 | OB/GYN Progress Note ---
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 Bonding well with infant Exam COUNTY ENGINEER - Constitutional Vitals: Vital Signs Temp Pulse Resp BP Pulse Ox 10/02/16 11:45 97.6 F 77 18 116/63 98 10/02/16 09:35 97.1 F L 80 20 119/61 100 10/02/16 08:00 98 F 75 20 107/58 10/02/16 04:00 97.9 F 96 H 20 120/64 99 10/02/16 00:00 97.0 F L 94 H 18 116/63 100 10/01/16 19:45 97.9 F 76 20 118/60 100 General appearance: no acute distress - Antepartum / Post Post Exam Breast: bilateral: normal Abdomen obstetrics: Present: bowel sounds normal Vagina: Present: normal moisture, discharge (Moderate lochia rubra) Uterus exam: Present: enlarged Anus/Rectum: Present: normal perianal skin - Respiratory Respiratory exam: Present: clear to auscultation bilaterally - Cardiovascular Cardiovascular exam: Present: regular rate and rhythm - GI/Abdominal GI/Abdominal exam: Present: normal bowel sounds, soft - Extremities Exam Extremities exam: Present: normal inspection - Neurological Exam Neurological exam: Present: alert, oriented X3 - Psychiatric Psychiatric exam: Present: normal affect, normal mood - Skin Skin exam: Present: normal color, warm Results - Labs CBC & BMP: 10/01/16 17:04 10/01/16 17:04
--- NOTE | 2016-10-02 18:10 | Event Note ---
Delivery note Stage I Prostaglandin gel Spontaneous rupture membranes clear fluid Variable decelerations still category 1 scalp electrode, and IUPC with amnioinfusion was performed Subcu Brethine was given Epidural anesthetic Stage II Delivery at 3:10 AM, female 6 lbs. 11 oz. Nuchal cord 1 Cord blood and cord gas obtained Stage III 3 cord vessels Manual removal of the placenta Estimated blood loss was less than 300 cc No lacerations were noted Mother stable
[2016-10-02] MEDS ORDERED: BUTALBITAL/ACETAMIN/CAFFEINE 50-325-40 MG TABLET PO PRN (18:16)
--- NOTE | 2016-10-02 18:29 | Anesthesia Post-Op ---
Anesthesia Post OP - Post Ansesthetic Evaluation Patient seen in post op: Yes Other:: Pt states she has a h/o migraine FLORES's. She is c/o a FLORES that is similar to her usual Migraine FLORES, but it is worse while sitting and standing. The pt had a labor epidural for pain management during her labor. I educated on the conservative management vs the invasive management for a post dural puncture FLORES. Conservative management would be to increase PO intake with caffeine beverages and Fioricet is ordered PRN. Invasive management would be an epidural blood patch. The pt decided to try the conservative management. We will follow up with her tomorrow.
[2016-10-02] MEDS: DOCUSATE SODIUM 100 MG CAPSULE PO SCH (21:15)
[2016-10-02] MEDS: FERROUS SULFATE 325 MG TABLET PO SCH (21:15)
[2016-10-02] MEDS: diphenhydrAMINE CAP 25 MG CAPSULE PO PRN (23:50)
[2016-10-03] MEDS: oxyCODONE/ACETAMINOPHEN 5-325 MG TABLET PO PRN (04:00)
[2016-10-03 06:41] LABS: Basophils % 0.5 % (0.0-0.8); Eosinophils # 0.4 10*3/uL (0.0-0.87); Eosinophils % 5.3 % (0.00-10.9); Hematocrit 26.5 VOL% (35.7-47.0); Hemoglobin 8.4 GM/DL (12.0-16.0); Immature Granulocytes % 0.9 %; Immature Granulocytes Absolute 0.07 #; Lymphocytes # 2.9 10*3/uL (1.4-4.0); Lymphocytes % 39.1 % (21.3-54.2); Mean Corpuscular HGB Conc 31.7 GM/DL (32-36); Mean Corpuscular Hemoglobin 22 PG (27-34); Mean Corpuscular Volume 70.5 FL (87-102); Mean Platelet Volume 10.6 FL (9.6-12.0); Monocytes # 0.4 10*3/uL (0.11-0.8); Monocytes % 5.9 % (1.7-12.7); Neutrophils # 3.6 10*3/uL (1.4-7.4); Neutrophils % 48.3 % (38.7-73.9); Platelet Count 348 T/CUMM (130-400); Red Blood Count 3.76 MC/CUMM (3.8-5.5); Red Cell Distribution Width 15.9 % (9.3-17.3); White Blood Count 7.4 T/CUMM (4-12)
[2016-10-03] MEDS ORDERED: SUMAtriptan 6 MG/0.5 ML VIAL SUBCUT ONE (08:39)
[2016-10-03] MEDS ORDERED: SUMAtriptan 6 MG/0.5 ML VIAL SUBCUT PRN (08:41)
[2016-10-03] MEDS: DOCUSATE SODIUM 100 MG CAPSULE PO SCH ×2 (09:53→21:36)
[2016-10-03] MEDS: MULTIVITAMIN (PRENATAL) TABLET PO SCH (09:53)
[2016-10-03] MEDS: FERROUS SULFATE 325 MG TABLET PO SCH ×2 (09:53→21:36)
--- NOTE | 2016-10-03 11:52 | Anesthesia Post-Op ---
Anesthesia Post OP - Post Ansesthetic Evaluation Patient seen in post op: Yes Other:: PT seen this morning and states that she still has a FLORES. Pt did not tolerate the Fioricet last night. I ordered Sumatriptan 6mg SC Q12 hours x 2 doses. We will follow up with her tomorrow morning and if the FLORES persists we will talk to the pt about doing an epidural blood patch.
--- NOTE | 2016-10-03 12:41 | OB/GYN Progress Note ---
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 Bonding well with infant. Exam HEAD STOCK OPERATOR - Constitutional Vitals: Vital Signs Temp Pulse Resp BP Pulse Ox 10/03/16 12:00 98.0 F 77 17 103/72 97 10/03/16 07:44 97.8 F 92 H 16 110/62 97 10/03/16 04:00 97.8 F 72 18 107/61 100 10/03/16 00:00 97.5 F L 77 20 117/68 100 10/02/16 19:30 96.9 F L 70 18 102/62 98 10/02/16 15:53 97.5 F L 73 20 109/71 98 General appearance: no acute distress - Antepartum / Post Post Exam Breast: bilateral: normal Abdomen obstetrics: Present: bowel sounds normal Vagina: Present: normal moisture, discharge Uterus exam: Present: enlarged (Fundus firm midline) Anus/Rectum: Present: normal perianal skin - Respiratory Respiratory exam: Present: clear to auscultation bilaterally - Cardiovascular Cardiovascular exam: Present: regular rate and rhythm - GI/Abdominal GI/Abdominal exam: Present: normal bowel sounds, soft - Extremities Exam Extremities exam: Present: normal inspection - Neurological Exam Neurological exam: Present: alert, oriented X3 - Psychiatric Psychiatric exam: Present: normal affect, normal mood - Skin Skin exam: Present: normal color, warm Results - Labs CBC & BMP: 10/03/16 06:11 10/01/16 17:04
--- NOTE | 2016-10-03 13:22 | Pathology Report from [facility] ---
[facility] ACCESSION # : [id number] PATIENT NAME : Chelo Ku ORDERING DR : JOO AKHTAR MD CLINICAL HX: IUP @ 39 weeks and 3/7 days gestation POST-OP DX: Vaginal delivery of viable female 7 lbs [id number] SPECIMEN INFO: Placenta GROSS DESCRIPTION: Received fresh labeled with the patients name and consists of a 375 gram placenta which measures 16.0 x 13.3 x 2.5 cm. membranes are pink-camp and translucent. The umbilical cord measures 18.5 cm, contains three vessels and is marginally inserted. The surface is blue-michel and appears to be circumvalate with a through and through rint area noted measuring 4.0 x 2. cm. The maternal surface displays mildly disrupted cotyledons with numerous calcifications seen. Sectioning reveals no gross abnormalities. Sections submitted: A membranes and cord, B and maternal surfaces. DIAGNOSIS FOR CHELO KU: PLACENTA, MEMBRANES, UMBILICAL CORD: Focal placental infarction with dystrophic calcification, mild intervillous blood. Tri -vessel umbilical cord, marginally inserted. Membranes with focal acute and chronic inflammation and attached blood. COLLECTED DATE: 10/02/2016 [facility] REPORT DATE: 10/03/2016 ELECTRONICALLY SIGNED BY: Vannesa Le M.D. 10/03/2016 - 10:27:15 MARQUISE
[2016-10-03] MEDS ORDERED: SUMAtriptan 6 MG/0.5 ML VIAL SUBCUT SCH (22:00)
[2016-10-03] MEDS: diphenhydrAMINE CAP 25 MG CAPSULE PO PRN (22:05)
[2016-10-03] MEDS: ONDANSETRON 4 MG/2 ML VIAL IV PRN (23:40)
[2016-10-04] MEDS: MULTIVITAMIN (PRENATAL) TABLET PO SCH (09:04)
[2016-10-04] MEDS: FERROUS SULFATE 325 MG TABLET PO SCH (09:04)
[2016-10-04] MEDS: DOCUSATE SODIUM 100 MG CAPSULE PO SCH (09:04)
[2016-10-04] MEDS: IBUPROFEN 800 MG TABLET PO PRN (09:27)
--- NOTE | 2016-10-04 09:52 | Event Note ---
Pt has a spinal headache. Anesthesia has been consulted. Pt will receive a blood patch and will be discharged to home when stable.
--- NOTE | 2016-10-04 09:55 | Discharge Summary ---
Hospital Course - Hospital Course Hospital Course: Ms. Ku is a 26-year-old female who presented to the labor department for elective induction of labor due to term . The patient subsequently delivered a viable and has followed a routine course. However the patient did experience a spinal headache. Anesthesia was consulted the patient will receive a blood patch and once stable she will be discharged to home. Otherwise there are no significant complaints. Her bleeding is minimal with no odor. She is voiding without difficulty. Her vital signs and lab values are stable. She is bonding well with her . She will be discharged home prescriptions for pain and follow-up appointment in our office. Diagnosis - Discharge Diagnosis (1) Term Status: Acute (2) Vaginal delivery Status: Acute Specialty Discharge - Follow Up or Referrals Follow up with: Jenniffer Camacho MD [Physician] - (Follow up in 6 weeks) Discharge Plan - Discharge Data Disposition: Disch To Home/Self Care Condition at Discharge: Stable Discharge Diet: advance to your usual diet, regular diet Activity: resume usual activities as tolerated, increase activity as tolerated Hygiene: may shower Weight Bearing at Discharge: weight bear as tolerated Driving: no restrictions Contact your physician if you experience:: fever over 101, pain uncontrolled by pain medications - Discharge Medications New Ferrous Sulfate Tab [Feosol Original Tab] 325 mg PO BID #60 tablet Ibuprofen Tab [Motrin Tab] 800 mg PO Q8H PRN #30 tablet PRN Reason: Pain Mild (1-3) And/Or Fever Acetamin/Codeine 300-30 Tab [Tylenol/Codeine #3] 2 tablet PO Q4H PRN #30 tablet PRN Reason: Pain Mild To Moderate (1-7) No Action Multivitamin () [ Vitamin] 1 tablet PO DAILY Ferrous Sulfate [Iron] 1 tablet PO DAILY - Follow Up or Referral - Forms/Instructions Exam - Constitutional Vitals: Period Temp Pulse Resp BP Sys/Pop Pulse Ox Last 24 Hr 97.4 F-98.9 F 77-88 16-20 97-113/52-72 96-100 General appearance: no acute distress - Respiratory Respiratory exam: Present: clear to auscultation bilaterally - Cardiovascular Cardiovascular exam: Present: regular rate and rhythm - GI/Abdominal GI/Abdominal exam: Present: normal bowel sounds, soft - Extremities Exam Extremities exam: Present: normal inspection - Back Exam Back exam: Present: normal inspection - Neurological Exam Neurological exam: Present: alert, oriented X3 - Psychiatric Psychiatric exam: Present: normal affect, normal mood - Skin Skin exam: Present: normal color, warm Discharge Results Procedures and tests throughout hospitalization: Pending Orders 10/01/16 16:43 Urinalysis Routine DS: Provider Date of admission: 10/01/16 16:29 Primary care physician: . No PCP Attending physician on admission: Jenniffer Camacho MD Consults: 10/01/16 16:43 Consult to Anesthesiology [CONS] Routine Consulting Provider: Reason for Anesthesiology: Epidural Consult Comment: Epidural for pain managment 10/02/16 15:44 Consult to Anesthesiology [CONS] Routine Consulting Provider: Reason for Anesthesiology: Epidural Blood Patch Discharging clinician: Brittani Maynard CNM Expected date of discharge: 10/04/16
[2016-10-04] MEDS ORDERED: LACTATED RINGERS 1,000 ML IV SCH (12:00)
[2016-10-04] MEDS ORDERED: LACTATED RINGERS 1,000 ML IV ONE (13:24)
--- NOTE | 2016-10-04 15:41 | Anesthesia Procedures ---
Anesthesia Procedures - Nerve Blocks Surgical Procedure: Epidural Blood Patch Location: PACU Position: other (Sitting) Patinet Consent: Patinet consented for above nerve block., Risks and benefits were discussed with patient,including infection,, bleeding,injury to surrounding structures, seizure, temporary nerve, Patient understands and accepts potential risks/benefits and agrees to ASA Monitors on: pulse oximetry, EKG, BP cuff Local Anesthetic: Sterile technique with 2% Chlorhexidine / Betadine, Local (1.5 % Lidocaine) used to numb skin Epidural Block: 18 G Tuohy needle into, via MARTHA, negative for CSF and Heme (Pt had post dural puncture FLORES with failed conservative treatment with Fioricet and Sumatriptan. Pt now wants invasive treatment of Epidural Blood Patch. Pt taken to PACU. Pt in sitting position prepped and draped in sterile fashion. + Mask, Cap, Glove. Lido used for local at L3-L4. 18g touhy needle +MARTHA. HOSPICE AIDE obtained 15mLs of blood in sterile fashion on right foot. Sterile blood injected into the epidural space. Pt put in supine position and states FLORES is resolving. Pt instructed to not do any strenuous activities for the next few days and to stay supine for the next few hours to allow the blood to form a clot at the dural puncture site. VSS throughout and pt taken back to post .)
[2016-10-04 15:43] VITALS: BP 106/63
== END 2016-10-04 16:45 | disposition home or self-care (01) | DRG 775 ==
LOC: N.LDOUT 16:28 → N.LD 16:29 → N.OB 10-02 09:40
PROVIDERS: ADMIT Obstetrics & Gynecology; ATTEND Obstetrics & Gynecology